=== PATIENT | male | born 1990 | race African-American/Black ===

== ENCOUNTER 2018-03-08 00:23 | Emergency (ER) | payer SELFPAY ==
[~2018-03-08] VITALS: Ht 182.9 cm; Wt 73.0 kg
[2018-03-08] MEDS ORDERED: ACETAMINOPHEN WITH CODEINE 300/30MG TABLET PO ONE (05:15)
[2018-03-08] MEDS ORDERED: IBUPROFEN 600MG TABLET PO ONE (05:15)
[2018-03-08 05:37] VITALS: BP 119/66
== END 2018-03-08 05:39 | disposition home or self-care (01) ==
LOC: ER 00:23
DX: K02.9 Dental caries, unspecified (principal); R51 Headache; F12.10 Cannabis abuse, uncomplicated; F17.200 Nicotine dependence, unspecified, uncomplicated
CPT/HCPCS: 99283